=== PATIENT | female | born 1970 | race Caucasian/White ===

== ENCOUNTER 2021-04-11 12:25 | Outpatient (CLI) | payer MEDICAID ==
--- NOTE | 2021-04-11 13:52 | XRay Report ---
RIGHT FOOT 3 VIEWS INDICATION: RIGHT FOOT PAIN. COMPARISON: None. IMPRESSION: A nondisplaced oblique fracture is identified to the proximal phalanx of the great toe. There is suggestion of subtle calcified callus consistent with a subacute injury. The remaining bony structures are intact. Severe osteoarthritic joint space narrowing is noted at the first metatarsoph alangeal joint. The remaining joint spaces are unremarkable. Signer Name: Brennen Dillon Jr, MD Signed: 04/11/2021 1:47 PM Workstation Name: [id number]
== END 2021-04-11 12:26 | disposition home or self-care (01) ==
LOC: XRAY 12:25
PROVIDERS: ATTEND Orthopaedic Surgery
DX: S92.911A Unspecified fracture of right toe(s), initial encounter for closed fracture (principal); M19.071 Primary osteoarthritis, right ankle and foot; X58.XXXA Exposure to other specified factors, initial encounter; Y93.89 Activity, other specified; Y92.89 Other specified places as the place of occurrence of the external cause; Y99.8 Other external cause status

== ENCOUNTER 2021-09-09 09:27 | Outpatient (CLI) | payer MEDICAID ==
--- NOTE | 2021-09-09 10:40 | XRay Report ---
Right foot, 2 views HISTORY: Pain right foot COMPARISON: 04/11/2021. FINDINGS: There is decreased conspicuity of the oblique fracture of the right great toe proximal phal anx, compatible with healing. No significant residual fracture lucency is seen. Advanced first MTP de generative arthrosis. No new skeletal abnormality. Signer Name: Enzo Whitney MD Signed: 09/09/2021 10:35 AM Workstation Name: [id number]
== END 2021-09-09 09:28 | disposition home or self-care (01) ==
LOC: LAB 09:27
PROVIDERS: ATTEND Orthopaedic Surgery
DX: S92.411A Displaced fracture of proximal phalanx of right great toe, initial encounter for closed fracture (principal); M19.071 Primary osteoarthritis, right ankle and foot; X58.XXXA Exposure to other specified factors, initial encounter; Y93.89 Activity, other specified; Y92.89 Other specified places as the place of occurrence of the external cause; Y99.8 Other external cause status